=== PATIENT | male | born 1950 ===

== ENCOUNTER 2023-05-31 07:00 | Inpatient (IN) | payer OTHER ==
[~2023-05-31] VITALS: Ht 175.3 cm; Wt 63.5 kg
[2023-05-31] MEDS ORDERED: METFORMIN HCL500 M3 PO (08:15)
[2023-05-31] MEDS ORDERED: GLIPIZIDE XL10 MG PO (08:15)
[2023-05-31] MEDS ORDERED: AUTOJECT 21 EACH (08:15)
[2023-05-31] MEDS ORDERED: ACID CONTROLLER20 MG PO (08:16)
[2023-05-31] MEDS ORDERED: ATORVASTATIN CA10 MG PO (08:16)
[2023-05-31] MEDS ORDERED: SYNTHROID100 MCG PO (08:16)
[2023-06-05] MEDS ORDERED: CILOSTAZOL50 MG (08:08)
[2023-06-05] MEDS ORDERED: HUMULIN N100 UNIT/2 (08:09)
== END 2023-06-07 10:26 | disposition home or self-care (01) | DRG 708 ==
LOC: O/R 06-05 05:10 → SURG 06-05 07:00
PROVIDERS: ADMIT Urology; ATTEND Urology
PROC: 0VT34ZZ Resection of Bilateral Seminal Vesicles, Percutaneous Endoscopic Approach (ICD-10-PCS; 2023-06-05)
PROC: 07BC4ZX Excision of Pelvis Lymphatic, Percutaneous Endoscopic Approach, Diagnostic (ICD-10-PCS; 2023-06-05)
PROC: 0VT04ZZ Resection of Prostate, Percutaneous Endoscopic Approach (ICD-10-PCS; principal; 2023-06-05 07:00)
DX: C61 Malignant neoplasm of prostate (principal)